=== PATIENT | male | born 1945 | race Caucasian/White ===

== ENCOUNTER 2016-10-21 04:03 | Inpatient (IN) | payer OTHER ==
[2016-10-14 13:02] LABS: MANUAL DIFF NEEDED? NO; URINE MICRO REVIEW NEEDED? NO; URINE SOURCE CLEAN CATCH
[2016-10-14 13:14] LABS: BASO% 0.3 % (0.0-0.8); BILIRUBIN URINE NEGATIVE (NEGATIVE); BLOOD URINE NEGATIVE (NEGATIVE); COLOR YELLOW; EOS# 0.15 X1000 (0.0-0.7); GLUCOSE URINE NEGATIVE (NEGATIVE); HEMATOCRIT 42.1 % (42.0-52.0); LEUKOCYTES URINE NEGATIVE (NEGATIVE); LYMPH# 1.06 X1000 (1.2-3.4); LYMPH% 14.2 % (20.5-51.1); MCHC 33.3 g/dL (33-37); MCV 96.3 FL (81-99); MONO# 0.83 X1000 (0.11-0.59); MONO% 11.1 % (1.7-9.3); MPV 10.5 FL (7.4-10.4); NEUT% 72.4 % (42.2-75.2); NITRITE URINE NEGATIVE (NEGATIVE); PH URINE 5.5; PLT 243 X1000 (130-400); PROTEIN URINE TRACE mg/dL (NEGATIVE); RBC 4.37 XMIL (4.7-6.1); SP GRAVITY URINE 1.029; TURBIDITY URINE CLEAR (CLEAR); UROBILINOGEN URINE 2 mg/dL (NORMAL)
[2016-10-14 13:17] LABS: UR EPITHELIAL CELLS <10 /HPF (<10); URINE BACTERIA NEGATIVE /HPF; URINE RBC <10 /HPF (<10); URINE WBC <10 /HPF (<10)
[2016-10-14 13:40] LABS: AGAP 11; ALKALINE PHOSPHATASE 80 U/L (32-122); BUN 21 mg/dL (8-22); CALCIUM 9.1 mg/dL (8.8-10.2); CHLORIDE 95 mmol/L (98-107); COSMO 276; GOT 22 U/L (10-34); GPT 17 U/L (10-44); POTASSIUM 4.6 mmol/L (3.5-5.1); SODIUM 136 mmol/L (136-145); TCO2 30 mmol/L (25-35); TOTAL BILIRUBIN 0.42 mg/dL (0.20-1.00); TOTAL PROTEIN 6.6 g/dL (6.3-8.3)
[2016-10-14 13:44] LABS: INR 0.97; PROTIME 9.9 Seconds (9.2-11.7); PTT 24.3 Seconds (22.0-36.0)
--- NOTE | 2016-10-14 14:24 | EKG Report ---
Test Performed on : 10/14/2016 12:58:51 PM Test Reason : PAT Blood Pressure : / mmHG Vent. Rate : 079 BPM Atrial Rate : 079 BPM P-R Int : 144 ms QRS Dur : 094 ms QT Int : 370 ms P-R-T Axes : 053 -10 051 degrees QTc Int : 424 ms Normal sinus rhythm. Minimal voltage criteria for LVH, may be normal variant Borderline ECG When compared with ECG of 30-APR-2014 18:45, premature ventricular complexes. are no longer present premature atrial complexes. are no longer present Confirmed by Sarah MIRELES, bL Erwin ([id number]) on 10/15/2016 9:29:15 AM
[2016-10-21] MEDS ORDERED: FELDENE PO PRN (07:07)
[2016-10-21] MEDS ORDERED: PATIENT'S OWN MED PO PRN (07:07)
[2016-10-21] MEDS ORDERED: CELEBREX ONE (09:41)
[2016-10-21] MEDS ORDERED: COLACE ONE (09:41)
[2016-10-21] MEDS ORDERED: LYRICA ONE (09:41)
[2016-10-21] MEDS ORDERED: LR 1,000 ML ONE (09:42)
[2016-10-21] MEDS ORDERED: REGLAN ONE (09:42)
[2016-10-21] MEDS ORDERED: KEFZOL 2 GM/D5W 50 ML ONE (09:42)
[2016-10-21] MEDS ORDERED: PEPCID ONE (09:42)
[2016-10-21] MEDS ORDERED: TORADOL ONE (12:18)
[2016-10-21] MEDS ORDERED: NEOSPORIN G.U. IRRIGANT ONE (12:18)
[2016-10-21] MEDS ORDERED: CYKLOKAPRON 1,000 MG/NS 100 ML ONE (12:18)
[2016-10-21] MEDS ORDERED: SODIUM CHLORIDE 0.9% ONE (12:18)
[2016-10-21] MEDS ORDERED: DURAMORPH ONE (12:18)
[2016-10-21] MEDS ORDERED: MARCAINE 0.25% PF/EPI 1:200,000 ONE (12:18)
[2016-10-21] MEDS ORDERED: EXPAREL 1.3% ONE (12:19)
[2016-10-21 13:38] LABS: URINE MICRO REVIEW NEEDED? NO; URINE SOURCE CATH
[2016-10-21 13:43] LABS: BILIRUBIN URINE NEGATIVE (NEGATIVE); BLOOD URINE NEGATIVE (NEGATIVE); COLOR YELLOW; GLUCOSE URINE NEGATIVE (NEGATIVE); LEUKOCYTES URINE NEGATIVE (NEGATIVE); NITRITE URINE NEGATIVE (NEGATIVE); PH URINE 7.5; PROTEIN URINE NEGATIVE (NEGATIVE); SP GRAVITY URINE 1.018; TURBIDITY URINE CLEAR (CLEAR); UROBILINOGEN URINE NORMAL (NORMAL)
[2016-10-21 13:45] LABS: UR EPITHELIAL CELLS <10 /HPF (<10); URINE BACTERIA NEGATIVE /HPF; URINE RBC <10 /HPF (<10); URINE WBC <10 /HPF (<10)
[2016-10-21] MEDS ORDERED: DIPRIVAN 1% ONE (14:51)
[2016-10-21] MEDS ORDERED: VERSED ONE (14:51)
[2016-10-21] MEDS ORDERED: FENTANYL ONE (14:51)
--- NOTE | 2016-10-21 14:57 | OPERATIVE NOTE ---
PROCEDURE DATE: 10/21/2016 DATE OF OPERATION: 10/21/2016. PREOPERATIVE DIAGNOSIS: Right glenohumeral arthritis. POSTOPERATIVE DIAGNOSIS: Right glenohumeral arthritis. PROCEDURE: Right reverse shoulder arthroplasty with DePuy Delta Xtend size 12 press-fit stem, a 42+ 6 humeral cup, 42 eccentric Glenosphere and a standard Metaglene. SURGEON: Dr. Pilo [place]. KNIFEMAN: Fazal WOOTEN. SECOND KNIFEMAN: Taylor Gamez PA-C. ANESTHESIA: General. IV FLUIDS: 1800 mL lactated Ringer's. ESTIMATED BLOOD LOSS: 25 mL. COMPLICATIONS: None. INDICATIONS: The patient is a 71-year-old male with chronic history of worsening pain and discomfort of his right shoulder. Continued pain and discomfort despite appropriate nonoperative treatment. X-rays revealed significant degenerative glenohumeral arthritis. Recommendation to proceed with right glenohumeral reverse shoulder arthroplasty was offered. The risks, benefits of surgery were explained, including the risks of the surgical anchors, anesthesia , , bleeding, infection, failure to relieve pain, postoperative stiffness, nerve injury, blood clots, and other imponderables. All questions were answered, and the patient and family wished to proceed with surgery. DETAILS OF OPERATION: The patient was taken to the operating room and placed supine on the operating table. Once adequate anesthesia was obtained, the patient was placed in semi-Sawyer beach chair position. Right shoulder was subsequently prepped and draped in usual sterile fashion. A standard deltopectoral incision was made with skin knife. Hemostasis was obtained using electrocautery. The deltopectoral interval was then developed and the cephalic vein was retracted laterally with the deltoid. The clavipectoral fascia was then elevated, as well as conjoined tendon. Deep Escobedo retractors were placed. Approximately 1 cm medial to the insertion of the subscapularis tendon, incision was made longitudinally to release the subscapularis. A stay suture was placed. Retractors then placed medially. Attention to the remaining portion of the superior aspect of the rotator cuff was released, as well as the biceps tendon. After this had been performed, the starting reamer was passed into the intramedullary canal. After this had been performed, sequential reaming was then conducted up to size 12. A guide was then placed and the proximal humeral cutting block was pinned in position. Proximal humeral head was then resected. A protective disk was then placed. The glenoid was then visualized and circumferential dissection performed with a deep knife. A guide was then placed and position and then the guide pin was placed. The reaming was then conducted. The central hole was then dilated and the guide pins removed. Copious irrigation then performed with antibiotic pulsatile lavage. Standard Metaglene was then placed. Three locking screws and one nonlocking screw was placed and had good purchase. The wound was copiously irrigated once again. The 42 eccentric Glenosphere was then placed with eccentricity placed inferiorly. Attention was then turned to the proximal humerus where intramedullary guide was placed in position. The proximal humerus was reamed. Of note, the patient did have an inferior osteophyte, which was removed with a rongeur. The guide was then removed. Copious irrigation then performed with antibiotic pulsatile lavage and a size 12 press-fit stem was then impacted in position with some autologous impaction bone grafting. Good purchase was obtained. Trial cup size then performed; 42+ 6 humeral cup had excellent stability in range of motion. The trial cup was removed. Copious irrigation then performed once again with antibiotic pulsatile lavage. A 42+ 6 humeral cup was impacted in position. The shoulder was reduced, carried through range of motion. It had excellent stability in range of motion. Exparel was placed in deep soft tissue , as well as subcutaneous tissue. The #2 FiberWire was then used to repair the subscapularis tendon. There appeared to be good repair. The wound was copiously irrigated once again with antibiotic pulsatile lavage. Then, 2-0 Vicryl was then used to repair the subcutaneous tissue followed by running 2-0 Prolene. Benzoin and Steri-Strips were applied. Adaptic, sterile 4 x 4s, ABD pad and tape applied to the right shoulder, followed by shoulder immobilizer. All counts were correct. The patient tolerated the procedure well and was transferred to the recovery room in stable condition. [facility]
--- NOTE | 2016-10-21 15:28 | HISTORY AND PHYSICAL ---
CHIEF COMPLAINT: Right shoulder pain. HISTORY OF PRESENT ILLNESS: This is a 71-year-old male with a long history of right shoulder problems. He has had injections and other conservative measures that did not seem to help. He also had a shoulder arthroscopy which helped for a short period of time, but now shoulder pain has progressed to the point that he was evaluated in the office and found to need a right total shoulder arthroplasty. The surgical procedure, as well as risks and benefits, was explained to the patient, and at this time he has agreed to proceed. ALLERGIES: Not allergic to any medications. SERIOUS ILLNESSES: No history of any serious ongoing illnesses. PAST SURGERIES: Knee arthroscopy, shoulder arthroscopy, appendectomy and a hernia. REGULAR MEDICATIONS: Piroxicam 20 p.r.n. pain, tramadol p.r.n. pain, Ambien 10 at night for sleep. REVIEW OF SYSTEMS: HEENT: No history of migraines, dizziness, loss of conscious, CVA. Respiratory: He is a nonsmoker. No history of asthma, emphysema, or shortness of breath. Heart: No history of heart abnormalities. Abdomen: He has history of reflux. He takes over- the-counter medication for this. No history of any bowel or bladder abnormalities. PHYSICAL EXAMINATION: GENERAL: This is a 71-year-old male, alert and oriented. His primary care physician is Dr. Miles. HEENT: Pupils are equal, round, reactive. NECK: Good range of motion without adenopathy or masses. RESPIRATORY: Respirations equal and unlabored, clear bilaterally. HEART: Regular rate and rhythm. ABDOMEN: Soft, nontender. Bowel sounds present. EXTREMITIES: He complains of pain in his right shoulder. He states he sometimes has difficulty with range of motion. The pain sometimes radiates up his neck. He has good sensation and pulses distally. IMPRESSION: Degenerative disease, right shoulder. PLAN: Admit at this time for right total shoulder arthroplasty.
--- NOTE | 2016-10-21 15:32 | Diag Imaging Result Document ---
PROCEDURE NAME: SHOULDER 1 VIEW RIGHT - 10/21/2016 PORTABLE RIGHT SHOULDER SINGLE-VIEW: FINDINGS: There has been recent orthopaedic replacement of the right shoulder. There is good positioning within the humeral shaft. No fracture. No dislocation. IMPRESSION: Recently replaced right shoulder.
[2016-10-21] MEDS ORDERED: PHENERGAN ONE (16:03)
[2016-10-21] MEDS ORDERED: NS 1,000 ML ONE (16:04)
[2016-10-21] MEDS: CENTRUM SILVER PO SCH (16:53)
[2016-10-21] MEDS ORDERED: MILK OF MAGNESIA PO PRN (17:22)
[2016-10-21] MEDS ORDERED: ZOFRAN PO PRN (17:22)
[2016-10-21] MEDS ORDERED: MORPHINE IV PRN (17:22)
[2016-10-21] MEDS ORDERED: OXY IR PO PRN (17:22)
[2016-10-21] MEDS ORDERED: NS 1,000 ML IV SCH (18:00)
[2016-10-21] MEDS ORDERED: CYKLOKAPRON 1,000 MG in NS 100 ML IV ONE (19:00)
[2016-10-21] MEDS: TYLENOL PO SCH (19:25)
[2016-10-21] MEDS ORDERED: AMBIEN PO SCH (21:00)
[2016-10-21] MEDS: PERIDEX MT SCH (21:25)
[2016-10-21] MEDS: KEFZOL 2 GM/D5W 50 ML IV SCH (21:26)
[2016-10-21] MEDS: COLACE PO SCH (21:27)
[2016-10-22 05:56] LABS: HEMATOCRIT 34.4 % (42.0-52.0); HEMOGLOBIN 11.6 g/dL (14.0-18.0)
[2016-10-22] MEDS: TYLENOL PO SCH ×2 (06:06→06:52)
[2016-10-22] MEDS: KEFZOL 2 GM/D5W 50 ML IV SCH (06:06)
[2016-10-22 06:08] LABS: AGAP 9; BUN 15 mg/dL (8-22); CALCIUM 8.2 mg/dL (8.8-10.2); CHLORIDE 101 mmol/L (98-107); COSMO 272; POTASSIUM 3.9 mmol/L (3.5-5.1); SODIUM 136 mmol/L (136-145); TCO2 26 mmol/L (25-35)
--- NOTE | 2016-10-22 07:24 | PROGRESS NOTE ---
DATE: 10/22/2016 SUBJECTIVE: The patient is a pleasant 71-year-old male who is 1 day status post right reverse shoulder arthroplasty. He is currently resting comfortably. He has no complaints. OBJECTIVE: On physical exam, patient's dressing is intact. He is neurovascularly intact. He has good it associate strength. Able to flex his elbow. LABORATORY DATA: Hemoglobin is 11.6, hematocrit is 34.4. IMPRESSIONS: Postoperative day #1 status post right reverse shoulder arthroplasty. PLAN: At this point, we will change his dressing. Discontinue his Shook, and Hep-Lock his IV. We will mobilize with physical therapy. Plan on discharging home later today. The patient will call the office to arrange outpatient physical therapy.
[2016-10-22 07:40] VITALS: BP 109/58
[2016-10-22] MEDS ORDERED: DECADRON IV ONE (09:00)
[2016-10-22] MEDS ORDERED: PEPCID PO SCH (09:00)
[2016-10-22] MEDS: PERIDEX MT SCH (09:23)
[2016-10-22] MEDS: COLACE PO SCH (09:23)
[2016-10-22] MEDS: CENTRUM SILVER PO SCH (09:23)
== END 2016-10-22 11:15 | disposition home or self-care (01) | DRG 483 ==
LOC: SURHOLD 04:03 → 4N 13:04
PROVIDERS: ADMIT Orthopaedic Surgery Adult Reconstructive Orthopaedic Surgery; ATTEND Orthopaedic Surgery Adult Reconstructive Orthopaedic Surgery
PROC: 0RRJ00Z Replacement of Right Shoulder Joint with Reverse Ball and Socket Synthetic Substitute, Open Approach (ICD-10-PCS; principal; 2016-10-21 12:43)
DX: M19.011 Primary osteoarthritis, right shoulder (principal); K21.9 Gastro-esophageal reflux disease without esophagitis; Z87.891 Personal history of nicotine dependence; Z79.899 Other long term (current) drug therapy
CPT/HCPCS: 80048; 80053; 81001; 85014; 85018; 85025; 85610; 85730; 86850; 86900; 86901; 93005; 93010; 94761; 94799; C9290; J0690; J1885; J2250; J2274; J2550; J3010; J7030; J7120; S0020